=== PATIENT | female | born 1975 | race Caucasian/White ===

== ENCOUNTER 2020-07-19 23:19 | Emergency (ER) | payer OTHER, SELFPAY ==
--- NOTE | ~2020-07-19 | XR_ITS ---
EXAMINATION: XR chest 1V portable DATE: 07/20/2020 00:45 INDICATION: COVID 19. Shortness of breath. TECHNIQUE: frontal view of the chest was obtained. COMPARISON: Chest radiograph dated 10/13/2018 FINDINGS: The lungs remain clear with no focal airspace opacities, pulmonary edema, pleural effusion or pneumot horax. The cardiomediastinal silhouette is normal. Visualized bones and soft tissues are unremarkable . IMPRESSION: 1. No acute cardiopulmonary disease. Reviewed, dictated and finalized at location A.
[2020-07-19 23:23] VITALS: BP 137/86; PULSE 94; RESP 20; TEMP 36.7; O2SAT 98
--- NOTE | 2020-07-20 00:18 | ED.DIZZY ---
HPI - Dizziness General Chief Complaint: Dizziness Stated Complaint: covid + now dizzy Time Seen by Provider: 07/20/20 00:14 History of Present Illness HPI Narrative: Diagnosed with CoVID-19 last week. She was initially having fever and cough. those symptoms have mostly resolved. Over the past few days she has had a few dizzy spells. They have been getting more frequent. She says it feels like light headedness. No particular position or activity that triggers it. Gets better if she changes what she is doing. Associated with mild SOB. No CP, palpitations. Related Data Allergies Allergy/AdvReac Type Severity Reaction Status Date / Time morphine Allergy Mild NAUSEA AND Verified 07/20/20 00:19 VOMITING AND MIGRAINES Sulfa (Sulfonamide Allergy Mild RASH Verified 07/20/20 00:19 Antibiotics) sumatriptan Allergy Mild FLUSHING Verified 07/20/20 00:19 codeine Allergy Unknown SHALLOW Verified 07/20/20 00:19 BREATHING Opioids - Morphine Analogues Allergy Unknown ITCHING Verified 07/20/20 00:19 sulfanilamide Allergy Unknown Unknown Verified 07/20/20 00:19 [id number] Antimigraine Allergy Unknown Unknown Verified 07/20/20 00:19 Agents Review of Systems Review of Systems: All systems reviewed & are unremarkable except as noted in HPI and below Constitutional: Constitutional: Denies chills, Denies fever(s) and Denies weakness Cardiovascular: Cardiovascular: Denies chest pain Respiratory: Respiratory: Denies cough and Denies dyspnea Gastrointestinal: Gastrointestinal: Denies abdominal pain, Denies nausea and Denies vomiting Neurologic: Denies confusion, Reports dizziness, Denies syncope, Denies headache(s) and Denies weakness Psychiatric: Psychiatric: Reports anxiety PMFSH Past Medical History Medical History (Updated 07/20/20 @ 04:54 by Juan Valencia MD) COVID-19 Family History Family History Other Cerebrovascular accident Diabetes mellitus Family history of alcoholism Family history of arthritis Family history of cardiovascular disease Family history of mental disorder Hypertension Social History Social History Alcohol intake: current Gender identity (if verbalized by the patient): Female Exam Const: General: healthy appearing, no acute distress and alert Nutritional Appearance: well nourished Orientation/consciousness: patient oriented x3 HENMT: Head: normal to inspection Ears: TM's normal bilaterally Eyes: Pupils: Equal, round and reactive pupils present EOM: EOMs intact bilaterally Resp: Effort & Inspection: normal respiratory effort Auscultation: clear to auscultation bilaterally Cardio: Rate: regular rate Rhythm: regular rhythm Skin: General skin exam: normal color Neuro: General: patient oriented x3, moves all extremities, no focal motor deficits and CN's II-XI intact bilaterally Speech: normal speech Gait exam (Neuro): Normal gait present Extrem: General: normal to inspection and no edema Course Vital Signs Vital signs: Vital Signs Temperature 36.7 C 07/19/20 23:23 Pulse Rate 94 07/19/20 23:23 Respiratory Rate 20 07/19/20 23:23 Blood Pressure 137/86 07/19/20 23:23 Pulse Oximetry 98 07/19/20 23:23 Temperature 36.7 C 07/19/20 23:23 Pulse Rate 61 07/20/20 02:48 Respiratory Rate 17 07/20/20 02:48 Blood Pressure 148/70 H 07/20/20 02:48 Pulse Oximetry 98 07/20/20 02:48 MDM - Dizziness MDM Narrative Medical decision making narrative: Description of symptoms was nonspecific. Feeling better after fluids and meclizine. Medical Records Attestation: I reviewed the patient's medical records. Lab Data Attestation: I reviewed the patient's lab results. Result diagrams: 07/20/20 00:28 07/20/20 00:28 Labs: Lab Results 07/20/20 07/20/20 Range/Units 00:28 00:28 WBC
[2020-07-20 00:20] VITALS: BP 149/80; PULSE 66; RESP 16; O2SAT 100
--- NOTE | 2020-07-20 00:20 | ECG_ITS ---
Measurements Intervals Egan Rate: 63 P: 32 DE: 137 QRS: 1 QRSD: 85 T: 52 QT: 384 QTc: 394 Interpretive Statements SINUS RHYTHM BASELINE ARTIFACT- I, II, III, AVR, AVL, AVF BORDERLINE ECG Electronically Signed On 07-20-2020 7:26:45 CDT by Vernon Mcclelland D.O.
[2020-07-20 00:38] LABS: Basophils Absolute Auto 0.1 K/mm3 (0.0-0.1); Basophils Percent Auto 0.7 % (0.2-1.2); Eosinophils Absolute Auto 0.2 K/mm3 (0-0.3); Eosinophils Percent Auto 2.6 % (0-4.4); Hematocrit 45.5 % (37.0-47.0); Immature Granulocyte Absolute 0.02 K/mm3 (0.00-0.031); Immature Granulocyte Percent A 0.3 % (0-0.5); Lymphocytes Absolute Auto 2.06 K/mm3 (0.9-3.2); Lymphocytes Percent Auto 29.6 % (18.3-44.2); Mean Corpuscular Hemoglobin 30.7 pg (26-34); Mean Platelet Volume 11.3 fl (7.4-10.4); Monocytes Absolute Auto 0.6 K/mm3 (0.1-0.6); Monocytes Percent Auto 7.9 % (2.6-8.5); Neutrophils Absolute Auto 4.1 K/mm3 (1.3-6.7); Neutrophils Percent Auto 58.9 % (45.5-73.1); Platelet Count Result 260 k/mm3 (150-375); Red Blood Count 4.89 M/mm3 (4.2-5.4)
[2020-07-20 00:47] LABS: Anion Gap 8 mmol/L (8-16); Blood Urea Nitrogen 16 mg/dL (7-17); Calcium 8.9 mg/dL (8.4-10.2); Carbon Dioxide 26 mmol/L (22-30); Chloride 104 mmol/L (98-107); Estimated CRCL calculation 98 ml/min; Estimated Glomerular Filt Rate > 60; Glucose 95 mg/dL (65-105); Sodium 138 mmol/L (137-145)
[2020-07-20] MEDS: MECLIZINE HCL 25 MG TABLET PO (01:27)
[2020-07-20] MEDS: SODIUM CHLORIDE 0.9% IV 1,000 ML 999 ML IV CONT (01:27)
[2020-07-20 01:29] VITALS: BP 142/73; PULSE 65; RESP 17; O2SAT 100
[2020-07-20 02:06] VITALS: BP 137/72; PULSE 66; RESP 13; O2SAT 98
[2020-07-20 02:48] VITALS: BP 148/70; PULSE 61; RESP 17; O2SAT 98
== END 2020-07-20 02:49 | disposition home or self-care (01) ==
PROVIDERS: Emergency Provider Emergency Medicine; PCP Physician Assistant
DX: R42 Dizziness and giddiness (principal)
CPT/HCPCS: 36415; 71045; 80048; 85025; 93005; 99284; A9270; J7030

== ENCOUNTER → 2021-08-28 08:20 | Outpatient (CLI) | payer OTHER, SELFPAY ==
[2021-08-28 18:52] LABS: SARS-CoV-2 RNA PCR Negative
== END ==
PROVIDERS: PCP Physician Assistant; Visit Provider Pediatrics
DX: R05.9 Cough, unspecified (principal); J98.8 Other specified respiratory disorders; Z20.822 Contact with and (suspected) exposure to COVID-19
CPT/HCPCS: C9803; U0003; U0005

== ENCOUNTER 2022-03-09 13:55 | Emergency (ER) | payer OTHER, SELFPAY ==
--- NOTE | ~2022-03-09 | CT_ITS ---
EXAMINATION: CT abdomen pelvis wo con DATE: 03/09/2022 14:25 INDICATION: Left upper quadrant abdominal pain. Nausea. TECHNIQUE: Computed tomography (CT) of the abdomen and pelvis was performed without intravenous contr ast. Automated exposure control and iterative reconstruction technique were employed. Exam dose: 120 2.33 mGy-cm total exam DLP. COMPARISON: None. FINDINGS: The lung bases are clear. Normal heart size. No pericardial or pleural effusion. The liver, gallbladder, bile ducts, spleen, pancreas, pancreatic duct are unremarkable. Normal morphology of the adrenal glands. No renal mass lesion or urinary tract calculus or hydroureteronephrosis is detected. The urinary blad sosa is unremarkable. Status post hysterectomy. Normal caliber of the abdominal aorta. No intraperitoneal or retroperitoneal or pelvic mass lesion or adenopathy or ascites. Minimal diverticulosis of the colon; no CT evidence of diverticulitis. Normal appendix. No bowel obstruction, bowel wall thickening, pneumatosis or intraperitoneal free air. Very small fat-containing umbilical hernia. Included skeletal structures are unremarkable. IMPRESSION: Normal appendix Minimal diverticulosis of the left colon; no CT evidence of diverticulitis Reviewed, dictated and finalized at Location A. Reviewed, dictated and finalized at location A.
[2022-03-09 14:01] VITALS: BP 144/84; PULSE 80; RESP 18; TEMP 36.8; O2SAT 99
--- NOTE | 2022-03-09 14:14 | ED.ABDPAIN ---
HPI - Abdominal Pain General Chief Complaint: Abdominal Pain Stated Complaint: abdominal pain Time Seen by Provider: 03/09/22 14:10 History of Present Illness HPI narrative: 47-year-old female with a history of IBS presents the emergency room for evaluation of abdominal pain. Patient states that pain started abruptly located left lower quadrant, and radiates into the back. Patient does not have any known history of diverticulitis or kidney stones. Patient states she has been afebrile. Patient denies nausea, vomiting, diarrhea or constipation. Patient states abdominal pain is worse when it is touched. Denies dysuria Related Data Allergies Allergy/AdvReac Type Severity Reaction Status Date / Time codeine Allergy Unknown Itching Verified 03/09/22 14:13 morphine Allergy Unknown Itching Verified 03/09/22 14:13 sulfanilamide Allergy Unknown Migraine Verified 03/09/22 14:13 sumatriptan Allergy Unknown Itching Verified 03/09/22 14:13 tramadol Allergy Unknown Itching Verified 03/09/22 14:13 Sulfa (Sulfonamide Allergy Rash Verified 03/09/22 14:14 Antibiotics) Review of Systems Review of Systems: CONSTITUTIONAL: Denies fever, chills, or sweats. EYES: Denies visual changes, redness, or discharge. ENT: Denies rhinorrhea, congestion, sore throat, or otalgia. CARDIOVASCULAR: Denies chest pain, palpitations, or edema. RESPIRATORY: Denies cough or dyspnea. GASTROINTESTINAL: Reports abdominal pain GENITOURINARY: Denies dysuria or hematuria. SKIN: Denies rash or itching. MUSCULOSKELETAL: Denies back pain, joint pain, or myalgia. NEUROLOGIC: Denies headache, numbness, dizziness, or weakness. PSYCHIATRIC: Denies anxiety or depression. PMFSH Family History Family History Mother Family history of suicide Family history of osteoarthritis Father Hypertension Social History Social History Alcohol intake: current Exam Narrative: GENERAL: Well-appearing, well-nourished, and in no acute distress. HEAD: Normocephalic, atraumatic. EYES: PERRLA and EOMI. CHEST: Clear to auscultation. No respiratory distress. No wheezes rales or rhonchi HEART: Regular rate and rhythm. No murmur heard. Normal peripheral pulses. ABDOMEN: Soft, left lower quadrant tenderness, left CVA tenderness, normal bowel sounds in 4, no guarding, obese EXTREMITIES: Normal range of motion. No edema. SKIN: Warm, dry, no rash. NEURO: No focal deficits. Alert and oriented x3. PSYCH: Normal mood and affect. Course Vital Signs Vital signs: Vital Signs Temperature 36.8 C 03/09/22 14:01 Pulse Rate 80 03/09/22 14:01 Respiratory Rate 18 03/09/22 14:01 Blood Pressure 144/84 H 03/09/22 14:01 Pulse Oximetry 99 03/09/22 14:01 Temperature 36.8 C 03/09/22 14:01 Pulse Rate 80 03/09/22 14:01 Respiratory Rate 18 03/09/22 14:01 Blood Pressure 144/84 H 03/09/22 14:01 Pulse Oximetry 99 03/09/22 14:01 MDM - Abdominal Pain MDM Narrative Medical decision making narrative: 47-year-old female history of IBS presents the emergency room for evaluation of left lower quadrant and left upper quadrant pain that radiates to the back. CBC and CMP were unremarkable. CT shows no evidence of diverticulitis, or urolithiasis. Plain films show large amounts of bowel gas to left upper quadrant. Differential Diagnosis Differential diagnosis: Likely abdominal pain Lab Data Attestation: I reviewed the patient's lab results. Result diagrams: 03/09/22 14:16 03/09/22 14:16 Labs: Lab Results 03/09/22 03/09/22 Range/Units 14:16 14:16 WBC 7.9 (4.5-10.0) K/mm3 RBC 4.78 (4.2-5.4) M/mm3 Hgb 14.6 (12.0-15.0) g/dL Hct 45.7 (37.0-47.0) % MCV 95.6 (80-100) fl MCH 30.5 (26-34) pg MCHC 31.9 L (32-36) g/dl RDW 14.0 (11.5-14.5) % Plt Count 296 (150-375) k/mm3 MPV 11.2 H (7.4-10.4) fl Immatu
[2022-03-09 14:25] LABS: Basophils Absolute Auto 0.1 K/mm3 (0.0-0.1); Eosinophils Absolute Auto 0.2 K/mm3 (0-0.3); Hematocrit 45.7 % (37.0-47.0); Hemoglobin 14.6 g/dL (12.0-15.0); Immature Granulocyte Absolute 0.02 K/mm3 (0.00-0.031); Immature Granulocyte Percent A 0.3 % (0-0.5); Lymphocytes Absolute Auto 1.55 K/mm3 (0.9-3.2); Lymphocytes Percent Auto 19.7 % (18.3-44.2); Mean Corpuscular HGB Conc 31.9 g/dl (32-36); Mean Corpuscular Hemoglobin 30.5 pg (26-34); Mean Corpuscular Volume 95.6 fl (80-100); Mean Platelet Volume 11.2 fl (7.4-10.4); Monocytes Absolute Auto 0.6 K/mm3 (0.1-0.6); Monocytes Percent Auto 7.5 % (2.6-8.5); Neutrophils Absolute Auto 5.5 K/mm3 (1.3-6.7); Neutrophils Percent Auto 69.5 % (45.5-73.1); Platelet Count Result 296 k/mm3 (150-375); Red Blood Count 4.78 M/mm3 (4.2-5.4); White Blood Count 7.9 K/mm3 (4.5-10.0)
[2022-03-09] MEDS: SODIUM CHLORIDE 0.9% IV 1,000 ML 999 ML IV CONT (14:29)
[2022-03-09 14:45] LABS: Alanine Aminotransferase 85 U/L (4-35); Albumin Level 4.5 g/dL (3.5-5.1); Alkaline Phosphatase 97 U/L (38-126); Anion Gap 12 mmol/L (8-16); Aspartate Amino Transferase 47 U/L (14-36); Bilirubin,Total 0.5 mg/dL (0.2-1.3); Blood Urea Nitrogen 18 mg/dL (7-17); Calcium 8.5 mg/dL (8.4-10.2); Carbon Dioxide 20 mmol/L (22-30); Chloride 105 mmol/L (98-107); Estimated CRCL calculation 95 ml/min; Estimated Glomerular Filt Rate > 60; Glucose 122 mg/dL (65-110); Lipase 38 U/L (23-300); Potassium 3.9 mmol/L (3.4-5.0); Sodium 137 mmol/L (137-145)
[2022-03-09 15:37] VITALS: PULSE 87; RESP 13; O2SAT 99
== END 2022-03-09 15:39 | disposition home or self-care (01) ==
PROVIDERS: Emergency Provider Nurse Practitioner Family
DX: R10.12 Left upper quadrant pain (principal); K58.9 Irritable bowel syndrome, unspecified
CPT/HCPCS: 36415; 70486; 74176; 80053; 83690; 85025; 96360; 99284; J7030

== ENCOUNTER 2022-03-09 15:59 | Outpatient (CLI) | payer OTHER, SELFPAY ==
--- NOTE | ~2022-03-09 | CT_ITS ---
EXAMINATION: CT sinus wo con DATE: 03/09/2022 16:29 INDICATION: Chronic sinusitis TECHNIQUE: Computed tomography (CT) of the paranasal sinuses was performed without contrast. Iterativ e reconstruction technique was employed. Exam dose: 295.30 mGy-cm total exam DLP. COMPARISON: None FINDINGS: There is rightward bowing of the nasal septum. Mild intralamellar cell of the middle nasal turbinates. Yariel bullosa of right middle nasal turbinate Prominent soft tissue swelling of the middle and inferior nasal turbinates bilaterally. Patent bilateral ostiomeatal units. The paranasal sinuses are normally developed and aerated. 7 mm mucus retention cyst in the inferomedial aspect of the left maxillary sinus. The paranasal sinus es are otherwise clear. Normal development and aeration of the mastoid air cells bilaterally. Middle and inner ear apparatus are unremarkable. IMPRESSION: Rightward bowing of nasal septum Mild intralamellar cell of both middle nasal turbinates and yariel bullosa of right middle nasal turb inate Small mucus retention cyst of the inferomedial left maxillary sinus Reviewed, dictated and finalized at [facility]. Reviewed, dictated and finalized at location A. IMPRESSION: Rightward bowing of nasal septum Mild intralamellar cell of both middle nasal turbinates and yariel bullosa of r ight middle nasal turbinate Small mucus retention cyst of the inferomedial left maxillary sinus
== END 2022-03-09 16:00 | disposition home or self-care (01) ==
PROVIDERS: PCP Physician Assistant; Visit Provider Otolaryngology
DX: J32.9 Chronic sinusitis, unspecified (principal); J34.1 Cyst and mucocele of nose and nasal sinus
CPT/HCPCS: 70486

== ENCOUNTER 2022-06-01 00:17 | Day surgery (SDC) | payer OTHER, SELFPAY ==
[2022-05-17 10:48] VITALS: BMI 39.0
--- NOTE | 2022-05-31 14:13 | PM.HPGS ---
History of Present Illness History of Present Illness Consent: Risks, benefits, and alternatives have been discussed and questions answered. Patient agrees to proceed with procedure. Chief complaint: neoplasm screening Narrative: Haydee Hahn is a 47 year old female Who was referred for colon cancer screening. Review of Systems Review of Systems: All systems reviewed & are unremarkable except as noted in HPI and below PMFSH Past Medical History Medical History Anxiety COVID-19 Hypothyroidism Surgical History Surgical History History of knee surgery History of removal of both ovaries History of tubal ligation Family History Family History Other Cerebrovascular accident Diabetes mellitus Family history of alcoholism Family history of arthritis Family history of cardiovascular disease Family history of mental disorder Hypertension Social History Social History Smoking status: Never smoker Alcohol intake: current Alcohol use details: Rare occasions Substance use type: does not use Gender identity (if verbalized by the patient): Female Spiritual care concerns: No Meds Home Medications and Allergies Home Medications Medication Instructions Recorded Confirmed Type escitalopram oxalate 10 mg tablet 10 mg PO DAILY 08/31/20 05/17/22 History (Lexapro) loratadine 10 mg tablet (Allergy 10 mg PO DAILY 08/31/20 05/17/22 History Relief (loratadine)) dextroamphetamine-amphetamine ER 30 mg PO QAM 01/31/22 05/17/22 History 30 mg 24hr capsule,extend release (Adderall XR) esterified estrogens 2.5 mg tablet 2.5 mg PO DAILY 01/31/22 05/17/22 History ipratropium bromide 42 mcg (0.06 2 spray intranasal TID #15 mL 01/31/22 05/17/22 Rx %) nasal spray levothyroxine 150 mcg capsule 165 mcg PO DAILY 01/31/22 05/17/22 History progesterone micronized 200 mg 500 mg PO QHS 01/31/22 05/17/22 History capsule testosterone 1.62 % (40.5 mg/2.5 1 packet transdermal DAILY 01/31/22 05/17/22 History gram) transdermal gel packet Allergies Allergy/AdvReac Type Severity Reaction Status Date / Time morphine Allergy Mild NAUSEA AND Verified 06/01/22 08:53 VOMITING AND MIGRAINES Sulfa (Sulfonamide Allergy Mild RASH Verified 06/01/22 08:53 Antibiotics) sumatriptan Allergy Mild FLUSHING Verified 06/01/22 08:53 codeine Allergy Unknown SHALLOW Verified 06/01/22 08:53 BREATHING Opioids - Morphine Analogues Allergy Unknown ITCHING Verified 06/01/22 08:53 sulfanilamide Allergy Unknown Unknown Verified 06/01/22 08:53 [id number] Antimigraine Allergy Unknown Unknown Verified 06/01/22 08:53 Agents Exam Const: General: alert Orientation/consciousness: patient oriented x3 Resp: Auscultation: clear to auscultation bilaterally Cardio: Rhythm: regular rhythm GI: GI Palp: Yes Soft to palpation and No Tenderness to palpation present (GI) Neuro: General: patient oriented x3 Assessment and Plan Assessment and plan (1) Colon cancer screening: Code(s): Z12.11 - Encounter for screening for malignant neoplasm of colon Status: Acute Assessment and Plan: Colonoscopy with possible biopsy or polypectomy or cautery or injection of substances.
[2022-06-01 08:54] VITALS: BP 128/74; PULSE 80; RESP 18; TEMP 36.5; O2SAT 98
[2022-06-01] MEDS: LACTATED RINGERS 1,000 ML 150 ML IV CONT (09:08)
--- NOTE | 2022-06-01 09:17 | WPDANESEPPF ---
Anes - Initial Pre Proc Eval Procedure: Operation Date: 06/01/22 10:00 Proposed Procedures p Screening Colonoscopy - Kd Russell MD Date/Time: 06/01/22 09:17 Surgeon: Kd Russell MD Pre Op Diagnosis: neoplasm screening Patient Data Age: 47 Gender: F Height: 1.6 m Weight: 100.1 kg Last Vital Signs Temp 36.5 C 06/01/22 08:54 Pulse 80 06/01/22 08:54 Resp 18 06/01/22 08:54 BP 128/74 06/01/22 08:54 Pulse Ox 98 06/01/22 08:54 O2 Del Method Room Air 06/01/22 08:54 Allergies Allergy/AdvReac Type Severity Reaction Status Date / Time morphine Allergy Mild NAUSEA AND Verified 06/01/22 08:53 VOMITING AND MIGRAINES Sulfa (Sulfonamide Allergy Mild RASH Verified 06/01/22 08:53 Antibiotics) sumatriptan Allergy Mild FLUSHING Verified 06/01/22 08:53 codeine Allergy Unknown SHALLOW Verified 06/01/22 08:53 BREATHING Opioids - Morphine Analogues Allergy Unknown ITCHING Verified 06/01/22 08:53 sulfanilamide Allergy Unknown Unknown Verified 06/01/22 08:53 [id number] Antimigraine Allergy Unknown Unknown Verified 06/01/22 08:53 Agents Home Medications Medication Instructions Recorded Confirmed Type escitalopram oxalate 10 mg tablet 10 mg PO DAILY 08/31/20 05/17/22 History (Lexapro) loratadine 10 mg tablet (Allergy 10 mg PO DAILY 08/31/20 05/17/22 History Relief (loratadine)) dextroamphetamine-amphetamine ER 30 mg PO QAM 01/31/22 05/17/22 History 30 mg 24hr capsule,extend release (Adderall XR) esterified estrogens 2.5 mg tablet 2.5 mg PO DAILY 01/31/22 05/17/22 History ipratropium bromide 42 mcg (0.06 2 spray intranasal TID #15 mL 01/31/22 05/17/22 Rx %) nasal spray levothyroxine 150 mcg capsule 165 mcg PO DAILY 01/31/22 05/17/22 History progesterone micronized 200 mg 500 mg PO QHS 01/31/22 05/17/22 History capsule testosterone 1.62 % (40.5 mg/2.5 1 packet transdermal DAILY 01/31/22 05/17/22 History gram) transdermal gel packet Patient hx anesthesia problems: post op nausea/vomiting Family hx anesthesia problems: none Results Review: All pre-operative results and documents have been reviewed as part of the pre-operative evaluation. [facility] Past Medical History Medical History Anemia Anxiety GERD (gastroesophageal reflux disease) Hypothyroidism Surgical History Surgical History History of knee surgery History of removal of both ovaries History of tubal ligation Family History Family History Other Cerebrovascular accident Diabetes mellitus Family history of alcoholism Family history of arthritis Family history of cardiovascular disease Family history of mental disorder Hypertension Social History Social History Smoking status: Never smoker Alcohol intake: current Alcohol use details: Rare occasions Substance use type: does not use Gender identity (if verbalized by the patient): Female Spiritual care concerns: No Anes - Eval Final PreProcedure Day of Procedure 06/01/22 09:17 Patient weight: obese Heart: regular rate and rhythm Lungs: clear to auscultation Airway: Mallampati scale class II Neurological: alert and oriented Last oral intake: >/= 8 hours ASA classification: III Emergent: no Anesthetic plan: proceed Anesthesia type and monitoring: general GIVS and standard monitoring Results Review: All pre-operative results and documents have been reviewed as part of the pre-operative evaluation. Informed Consent: The patient's anesthetic plan and its attendant risks and benefits were discussed with the patient/family/POA. Questions were solicited and answers provided to the satisfaction of the patient/family/POA.
[2022-06-01 10:05] VITALS: BP 138/69; PULSE 68; RESP 18; O2SAT 100
[2022-06-01 10:15] VITALS: BP 135/60; PULSE 60; RESP 20; O2SAT 100
[2022-06-01 10:25] VITALS: BP 138/69; PULSE 69; RESP 18; O2SAT 100
== END 2022-06-01 10:45 | disposition home or self-care (01) ==
PROVIDERS: PCP Physician Assistant; Visit Provider Internal Medicine Gastroenterology
PROC: 0DJD8ZZ Inspection of Lower Intestinal Tract, Via Natural or Artificial Opening Endoscopic (ICD-10-PCS; CPT 45378; principal; 2022-06-01 10:00)
DX: Z12.11 Encounter for screening for malignant neoplasm of colon (principal); D64.9 Anemia, unspecified; F41.9 Anxiety disorder, unspecified; K21.9 Gastro-esophageal reflux disease without esophagitis; E03.9 Hypothyroidism, unspecified; E66.9 Obesity, unspecified; Z68.39 Body mass index [BMI] 39.0-39.9, adult; Z86.16 Personal history of COVID-19
CPT/HCPCS: 45378; J2704; J7120

== ENCOUNTER 2022-08-01 17:10 | Outpatient (CLI) | payer OTHER, SELFPAY ==
--- NOTE | ~2022-08-01 | XR_ITS ---
EXAM: XR lumbar spine 2-3V DATE: 08/01/2022 17:54 HISTORY: CERVICALGIA, PAIN IN THORACIC, LOW BACK PAIN . COMPARISON: None available. FINDINGS: 5 nonrib-bearing lumbar-type vertebral bodies. Pedicles intact. Normal vertebral body alig nment. Vertebral body heights preserved. Disc spaces maintained. Multilevel mild facet hypertrophy an d sclerosis. No fracture or dislocation. IMPRESSION: Mild lumbar facet arthropathy. Reviewed, dictated and finalized at location K.
--- NOTE | ~2022-08-01 | XR_ITS ---
EXAM: XR thoracic spine 3V DATE: 08/01/2022 17:54 HISTORY: CERVICALGIA, PAIN IN THORACIC, LOW BACK PAIN . COMPARISON: None available. FINDINGS: Vertebral body alignment intact. Vertebral body heights preserved. Multilevel mild disc sp jose narrowing and marginal osteophytosis. No traumatic malalignment or fracture. Visualized lung pare nchyma is clear. IMPRESSION: Multilevel mild degenerative disc disease. Reviewed, dictated and finalized at location K.
--- NOTE | ~2022-08-01 | XR_ITS ---
EXAM: XR cervical spine 4-5V DATE: 08/01/2022 17:54 HISTORY: CERVICALGIA . COMPARISON: None available. FINDINGS: Craniocervical association and atlantoaxial joint are normal. No prevertebral soft tissue swelling. 2 mm anterolisthesis at C4-5. Mild disc space narrowing and marginal osteophytosis at C6-7, remaining disc spaces are maintained. Normal vertebral body heights. Moderate left neural foraminal narrowing at C6-7. Moderate right C3-4 neural foraminal narrowing. Multilevel uncovertebral joint hyp ertrophy. IMPRESSION: Grade 1 anterolisthesis at C4-5. Moderate degenerative disc disease at C6-7. Moderate rig ht C3-4 and left C6-7 neural foraminal narrowing. Reviewed, dictated and finalized at location K. IMPRESSION: Grade 1 anterolisthesis at C4-5. Moderate degenerative disc disease at C6-7. Moderate right C3-4 and left C6-7 neural foraminal narrowing.
== END 2022-08-01 17:11 | disposition home or self-care (01) ==
LOC: ANHIMG 17:13
PROVIDERS: PCP Physician Assistant; Visit Provider Physician Assistant
DX: M54.6 Pain in thoracic spine (principal); M54.2 Cervicalgia; M47.814 Spondylosis without myelopathy or radiculopathy, thoracic region; M47.813 Spondylosis without myelopathy or radiculopathy, cervicothoracic region; M54.50 Low back pain, unspecified
CPT/HCPCS: 72050; 72072; 72100

== ENCOUNTER 2022-11-15 10:27 | Outpatient (CLI) | payer OTHER, SELFPAY ==
[2022-11-15 19:44] LABS: Basophils Absolute Auto 0.1 K/mm3 (0.0-0.1); Basophils Percent Auto 1.2 % (0.2-1.2); Eosinophils Absolute Auto 0.2 K/mm3 (0-0.3); Eosinophils Percent Auto 3.4 % (0-4.4); Hematocrit 45.1 % (37.0-47.0); Immature Granulocyte Absolute 0.01 K/mm3 (0.00-0.031); Immature Granulocyte Percent A 0.2 % (0-0.5); Lymphocytes Absolute Auto 1.85 K/mm3 (0.9-3.2); Lymphocytes Percent Auto 28.4 % (18.3-44.2); Mean Corpuscular Hemoglobin 30.2 pg (26-34); Mean Corpuscular Volume 97.4 fl (80-100); Mean Platelet Volume 11.9 fl (7.4-10.4); Monocytes Absolute Auto 0.6 K/mm3 (0.1-0.6); Monocytes Percent Auto 9.4 % (2.6-8.5); Neutrophils Absolute Auto 3.8 K/mm3 (1.3-6.7); Neutrophils Percent Auto 57.4 % (45.5-73.1); Platelet Count Result 306 k/mm3 (150-375); Red Blood Count 4.63 M/mm3 (4.2-5.4); Red Cell Distribution Width 14.4 % (11.5-14.5); White Blood Count 6.5 K/mm3 (4.5-10.0)
[2022-11-15 19:57] LABS: Add Urine Microscopic? NO; Appearance Urine Clear (Clear); Bilirubin Urine Negative (Negative); Blood Urine Negative (Negative); Color Urine Yellow (Yellow); Glucose Urine UA Negative (Negative); Ketones Urine Negative (Negative); Leukocyte Esterase Ur Negative LEU/UL (Negative); Nitrate Urine Negative (Negative); Protein Urine Negative (Negative); Specific Grav Ur >= 1.030 (1.001-1.035); Urobilinogen Urine 0.2 mg/dL (<2.0)
[2022-11-15 19:59] LABS: Alanine Aminotransferase 35 U/L (6-35); Albumin Level 4.2 g/dL (3.5-5.1); Alkaline Phosphatase 97 U/L (38-126); Anion Gap 9 mmol/L (8-16); Aspartate Amino Transferase 43 U/L (14-36); Bilirubin,Total 0.3 mg/dL (0.2-1.3); Blood Urea Nitrogen 18 mg/dL (7-17); Calcium 8.9 mg/dL (8.4-10.2); Carbon Dioxide 27 mmol/L (22-30); Chloride 105 mmol/L (98-107); Cholesterol 164 mg/dL (0-200); Estimated Glomerular Filt Rate > 60; Glucose 82 mg/dL (65-110); HDL Direct 25 mg/dL; Potassium 3.8 mmol/L (3.4-5.0); Sodium 141 mmol/L (137-145); Triglycerides 146 mg/dL (<150)
[2022-11-15 20:10] LABS: LDL Cholesterol Direct 116 mg/dL
[2022-11-15 21:03] LABS: Folic Acid 3.2 ng/mL (2.76->20)
[2022-11-15 22:53] LABS: Free T4 Free Thyroxine 0.85 ng/mL (0.78-2.19)
[2022-11-19 15:01] LABS: FSH 87.7 mIU/mL (***); LH 36.2 mIU/mL (***); Progesterone 0.4 ng/mL (***); Prolactin 5.3 ng/mL (***); Triiodothyronine T3 Free 3.1 pg/mL (2.3-4.2)
[2022-11-20 10:23] LABS: Testosterone Total 22 ng/dL (2-45)
[2022-11-21 21:01] LABS: Estradiol, Ultrasensitive 17 pg/mL
== END 2022-11-15 10:28 | disposition home or self-care (01) ==
LOC: ANHBWCLAB 10:30
PROVIDERS: PCP Physician Assistant; Visit Provider Physician Assistant
DX: E03.9 Hypothyroidism, unspecified (principal); Z78.0 Asymptomatic menopausal state; Z68.38 Body mass index [BMI] 38.0-38.9, adult; Z13.1 Encounter for screening for diabetes mellitus; Z13.220 Encounter for screening for lipoid disorders; Z79.899 Other long term (current) drug therapy
CPT/HCPCS: 36415; 80053; 80061; 81003; 82607; 82670; 82672; 82746; 83001; 83002; 83036; 83525; 84144; 84146; 84403; 84439; 84443; 84481; 85025

== ENCOUNTER 2023-04-04 17:04 | Emergency (ER) | payer OTHER, SELFPAY ==
[2023-04-04 17:08] VITALS: BP 143/91; PULSE 80; RESP 20; TEMP 36.8; O2SAT 99
--- NOTE | 2023-04-04 17:15 | ED.URI ---
HPI - URI/Sore Throat General Chief Complaint: Upper Respiratory Infection Stated Complaint: head congestion/ears Time Seen by Provider: 04/04/23 17:15 Source: patient and RN notes reviewed History of Present Illness HPI Narrative: Patient is a 48-year-old female presents to urgent care with complaints of 8 week history of sinusitis with pressure, head congestion and bilateral ear discomfort. Patient states that she started Sudafed a couple weeks ago after she was seen by Jose in the medical office. Patient states that she has been seen by ENT in the past and did have issues with punctured sinus cavity with a tooth infection. Patient denies any fevers. States it she has been using Tylenol/ibuprofen as needed for discomfort. Patient is requesting Levaquin. No other acute complaints. No acute distress noted. Patient aware of the plan of care. Some parts of this dictation were generated by voice recognition software and may contain typographical and/or grammatical inaccuracies. Related Data Home Medications Medication Instructions Recorded Confirmed escitalopram oxalate 10 mg tablet 10 mg PO DAILY 08/31/20 05/17/22 (Lexapro) loratadine 10 mg tablet (Allergy 10 mg PO DAILY 08/31/20 05/17/22 Relief (loratadine)) dextroamphetamine-amphetamine ER 30 mg PO QAM 01/31/22 05/17/22 30 mg 24hr capsule,extend release (Adderall XR) esterified estrogens 2.5 mg tablet 2.5 mg PO DAILY 01/31/22 05/17/22 levothyroxine 150 mcg capsule 165 mcg PO DAILY 01/31/22 05/17/22 progesterone micronized 200 mg 500 mg PO QHS 01/31/22 05/17/22 capsule testosterone 1.62 % (40.5 mg/2.5 1 packet transdermal DAILY 01/31/22 05/17/22 gram) transdermal gel packet Allergies Allergy/AdvReac Type Severity Reaction Status Date / Time morphine Allergy Mild NAUSEA AND Verified 06/01/22 08:53 VOMITING AND MIGRAINES Sulfa (Sulfonamide Allergy Mild RASH Verified 06/01/22 08:53 Antibiotics) sumatriptan Allergy Mild FLUSHING Verified 06/01/22 08:53 codeine Allergy Unknown SHALLOW Verified 06/01/22 08:53 BREATHING Opioids - Morphine Analogues Allergy Unknown ITCHING Verified 06/01/22 08:53 sulfanilamide Allergy Unknown Unknown Verified 06/01/22 08:53 [id number] Antimigraine Allergy Unknown Unknown Verified 06/01/22 08:53 Agents Review of Systems Review of Systems: CONSTITUTIONAL: Denies fever, chills, or sweats. EYES: Denies visual changes, redness, or discharge. ENT: Reports of sinus pressure, nasal congestion and bilateral otalgia CARDIOVASCULAR: Denies chest pain, palpitations, or edema. RESPIRATORY: Denies cough or dyspnea. GASTROINTESTINAL: Denies abdominal pain, nausea, vomiting, or diarrhea. GENITOURINARY: Denies dysuria or hematuria. SKIN: Denies rash or itching. MUSCULOSKELETAL: Denies back pain, joint pain, or myalgia. NEUROLOGIC: Denies headache, numbness, or weakness. All other systems reviewed are negative, except as documented in HPI. [facility] Past Medical History Medical History Anemia Anxiety GERD (gastroesophageal reflux disease) Hypothyroidism Surgical History Surgical History History of knee surgery History of removal of both ovaries History of tubal ligation Family History Family History Other Cerebrovascular accident Diabetes mellitus Family history of alcoholism Family history of arthritis Family history of cardiovascular disease Family history of mental disorder Hypertension Social History Social History Smoking status: Never smoker Alcohol intake: current Alcohol use details: Rare occasions Substance use type: does not use Gender identity (if verbalized by the patient): Female Spiritual care concerns: No Comments At the
== END 2023-04-04 17:38 | disposition home or self-care (01) ==
PROVIDERS: Emergency Provider Nurse Practitioner Family; PCP Physician Assistant
DX: J32.9 Chronic sinusitis, unspecified (principal); K21.9 Gastro-esophageal reflux disease without esophagitis; E03.9 Hypothyroidism, unspecified; F41.9 Anxiety disorder, unspecified
CPT/HCPCS: 99213; G0463

== ENCOUNTER 2023-04-26 09:58 | Outpatient (CLI) | payer OTHER, SELFPAY ==
[2023-04-26 16:32] LABS: Basophils Absolute Auto 0.1 K/mm3 (0.0-0.1); Eosinophils Absolute Auto 0.2 K/mm3 (0-0.3); Eosinophils Percent Auto 3.6 % (0-4.4); Hematocrit 45.7 % (37.0-47.0); Hemoglobin 14.4 g/dL (12.0-15.0); Immature Granulocyte Absolute 0.01 K/mm3 (0.00-0.031); Immature Granulocyte Percent A 0.2 % (0-0.5); Lymphocytes Absolute Auto 1.22 K/mm3 (0.9-3.2); Lymphocytes Percent Auto 24.2 % (18.3-44.2); Mean Corpuscular HGB Conc 31.5 g/dl (32-36); Mean Corpuscular Hemoglobin 29.4 pg (26-34); Mean Corpuscular Volume 93.5 fl (80-100); Mean Platelet Volume 12.4 fl (7.4-10.4); Monocytes Absolute Auto 0.5 K/mm3 (0.1-0.6); Monocytes Percent Auto 9.5 % (2.6-8.5); Neutrophils Absolute Auto 3.1 K/mm3 (1.3-6.7); Neutrophils Percent Auto 61.5 % (45.5-73.1); Platelet Count Result 241 k/mm3 (150-375); Red Blood Count 4.89 M/mm3 (4.2-5.4); Red Cell Distribution Width 14.2 % (11.5-14.5); White Blood Count 5.1 K/mm3 (4.5-10.0)
[2023-04-26 16:45] LABS: Alanine Aminotransferase 63 U/L (6-35); Albumin Level 3.9 g/dL (3.5-5.1); Alkaline Phosphatase 78 U/L (38-126); Anion Gap 7 mmol/L (8-16); Aspartate Amino Transferase 52 U/L (14-36); Bilirubin,Total 0.6 mg/dL (0.2-1.3); Blood Urea Nitrogen 11 mg/dL (7-17); Calcium 8.6 mg/dL (8.4-10.2); Carbon Dioxide 29 mmol/L (22-30); Chloride 103 mmol/L (98-107); Estimated Glomerular Filt Rate > 60; Glucose 75 mg/dL (65-110); Potassium 3.6 mmol/L (3.4-5.0); Sodium 139 mmol/L (137-145)
[2023-04-26 17:02] LABS: Free T4 Free Thyroxine 1.25 ng/mL (0.78-2.19)
[2023-05-01 14:51] LABS: Triiodothyronine T3 Free 2.7 pg/mL (2.3-4.2)
== END 2023-04-26 09:59 | disposition home or self-care (01) ==
LOC: ANHGOSHLAB 10:00
PROVIDERS: Visit Provider Physician Assistant
DX: E03.9 Hypothyroidism, unspecified (principal)
CPT/HCPCS: 36415; 80053; 84439; 84443; 84481; 85025

== ENCOUNTER 2023-09-28 15:40 | Emergency (ER) | payer OTHER, SELFPAY ==
[2023-09-28 15:41] VITALS: BP 133/81; PULSE 94; RESP 18; TEMP 36.3; O2SAT 99
--- NOTE | 2023-09-28 17:34 | ED.GENADULT ---
HPI - General Adult General Chief complaint: Headache Stated complaint: headache Time Seen by Provider: 09/28/23 17:03 Source: patient Mode of arrival: ambulatory Limitations: no limitations History of Present Illness HPI narrative: This is a 48-year-old female who presents to the ED with chief complaint of feeling dehydrated. Reports that has had a headache over the last few days with sinusitis. She has been taking Porsha on Augmentin per her PCP for this and feels that is helping the sinuses. However today she had an episode of vomiting and mild diffuse abdominal discomfort. She states she has had several episodes of this ever since starting her semaglutide January and this feels similar. She is requesting fluids for possible dehydration and to check her labs. Denies fevers, chills, problems with urination or bowel movements. Denies numbness, weakness, neck pain or stiffness, vision change. Related Data Home Medications Medication Instructions Recorded Confirmed escitalopram oxalate 10 mg tablet 10 mg PO DAILY 08/31/20 05/17/22 (Lexapro) loratadine 10 mg tablet (Allergy 10 mg PO DAILY 08/31/20 05/17/22 Relief (loratadine)) dextroamphetamine-amphetamine ER 30 mg PO QAM 01/31/22 05/17/22 30 mg 24hr capsule,extend release (Adderall XR) esterified estrogens 2.5 mg tablet 2.5 mg PO DAILY 01/31/22 05/17/22 levothyroxine 150 mcg capsule 165 mcg PO DAILY 01/31/22 05/17/22 progesterone micronized 200 mg 500 mg PO QHS 01/31/22 05/17/22 capsule testosterone 1.62 % (40.5 mg/2.5 1 packet transdermal DAILY 01/31/22 05/17/22 gram) transdermal gel packet Allergies Allergy/AdvReac Type Severity Reaction Status Date / Time codeine Allergy Unknown Itching Verified 09/28/23 16:21 morphine Allergy Unknown Itching Verified 09/28/23 16:21 Opioids - Morphine Analogues Allergy Unknown ITCHING Verified 09/28/23 16:21 sulfanilamide Allergy Unknown Migraine Verified 09/28/23 16:21 sumatriptan Allergy Unknown Itching Verified 09/28/23 16:21 tramadol Allergy Unknown Itching Verified 09/28/23 16:21 [id number] Antimigraine Allergy Unknown Unknown Verified 09/28/23 16:21 Agents Sulfa (Sulfonamide Allergy Rash Verified 09/28/23 16:21 Antibiotics) Review of Systems Review of Systems: All systems as dictated in [facility] Past Medical History Medical History (Updated 09/28/23 @ 18:57 by Devonte Murrieta PA-C) Anemia Anxiety GERD (gastroesophageal reflux disease) Hypothyroidism Surgical History Surgical History (Updated 04/30/23 @ 15:03 by Tamika Minaya) History of knee surgery History of removal of both ovaries History of tubal ligation Family History Family History Mother Family history of suicide Family history of osteoarthritis Father Hypertension Social History Social History (System 04/30/23 @ 15:03 by Tamika Minaya) Smoking status: Never smoker Alcohol intake: current Alcohol use details: Rare occasions Substance use type: does not use Gender identity (if verbalized by the patient): Female Spiritual care concerns: No Exam Narrative: GENERAL: Well-appearing, well-nourished, and in no acute distress. HEAD: Normocephalic, atraumatic. EYES: PERRLA and EOMI. ENT: Nares clear, no rhinorrhea or epistaxis. Mucous membranes moist. Oropharynx without tonsillar hypertrophy exudate or other lesions. NECK: Supple. No adenopathy or masses. CHEST: No respiratory distress. Clear to auscultation. No wheezes rales or rhonchi HEART: Regular rate and rhythm. No murmur heard. Normal peripheral pulses. ABDOMEN: Soft, nontender, nondistended, normal active bowel sounds. MSK: Normal range of motion. No edema. SKIN: Warm, dry, no rash. NEURO: Alert and oriented x3. No focal deficits. PSYCH: Normal mood and affect. Course Course Emergency Course: Re-evaluation at 6:56 p.m.: Patient feeling much improved and ready to go
[2023-09-28] MEDS: ONDANSETRON INJ 4 MG/2 ML VIAL IV PUSH (17:40)
[2023-09-28] MEDS: SODIUM CHLORIDE 0.9% IV 1,000 ML 999 ML IV CONT (17:40)
[2023-09-28] MEDS: KETOROLAC 15 MG/ML VIAL (*BKC) IV PUSH (17:40)
[2023-09-28 17:43] LABS: Basophils Absolute Auto 0.1 K/mm3 (0.0-0.1); Basophils Percent Auto 1.1 % (0.2-1.2); Eosinophils Absolute Auto 0.1 K/mm3 (0-0.3); Eosinophils Percent Auto 1.8 % (0-4.4); Hematocrit 42.3 % (37.0-47.0); Hemoglobin 13.7 g/dL (12.0-15.0); Immature Granulocyte Absolute 0.01 K/mm3 (0.00-0.031); Immature Granulocyte Percent A 0.1 % (0-0.5); Lymphocytes Percent Auto 15.2 % (18.3-44.2); Mean Corpuscular HGB Conc 32.4 g/dl (32-36); Mean Corpuscular Hemoglobin 30.9 pg (26-34); Mean Corpuscular Volume 95.3 fl (80-100); Mean Platelet Volume 11.8 fl (7.4-10.4); Monocytes Absolute Auto 0.6 K/mm3 (0.1-0.6); Monocytes Percent Auto 7.7 % (2.6-8.5); Neutrophils Absolute Auto 5.4 K/mm3 (1.3-6.7); Neutrophils Percent Auto 74.1 % (45.5-73.1); Platelet Count Result 268 k/mm3 (150-375); Red Blood Count 4.44 M/mm3 (4.2-5.4); Red Cell Distribution Width 13.9 % (11.5-14.5); White Blood Count 7.3 K/mm3 (4.5-10.0)
[2023-09-28 17:44] VITALS: BP 136/84; PULSE 69; RESP 15; O2SAT 98
[2023-09-28 17:53] LABS: Alanine Aminotransferase 30 U/L (6-35); Albumin Level 3.9 g/dL (3.5-5.1); Alkaline Phosphatase 74 U/L (38-126); Anion Gap 10 mmol/L (8-16); Aspartate Amino Transferase 24 U/L (14-36); Bilirubin,Total 0.6 mg/dL (0.2-1.3); Blood Urea Nitrogen 12 mg/dL (7-17); Calcium 9.3 mg/dL (8.4-10.2); Carbon Dioxide 28 mmol/L (22-30); Chloride 103 mmol/L (98-107); Estimated CRCL calculation 81 ml/min; Estimated Glomerular Filt Rate > 60; Glucose 83 mg/dL (65-110); Lipase 71 U/L (23-300); Magnesium 2.1 mg/dL (1.6-2.3); Phosphorus 4.6 mg/dL (2.5-4.5); Sodium 141 mmol/L (137-145)
[2023-09-28 18:25] VITALS: BP 119/79; PULSE 73; RESP 15; O2SAT 100
== END 2023-09-28 19:15 | disposition home or self-care (01) ==
PROVIDERS: Emergency Provider Physician Assistant; PCP Physician Assistant
DX: R51.9 Headache, unspecified (principal); E03.9 Hypothyroidism, unspecified; K21.9 Gastro-esophageal reflux disease without esophagitis; F41.9 Anxiety disorder, unspecified; Z86.2 Personal history of diseases of the blood and blood-forming organs and certain disorders involving the immune mechanism; Z79.85 Long-term (current) use of injectable non-insulin antidiabetic drugs
CPT/HCPCS: 36415; 80053; 83690; 83735; 84100; 85025; 96361; 96374; 96375; 99284; J1885; J2405; J7030

== ENCOUNTER 2024-08-18 14:02 | Emergency (ER) | payer OTHER, SELFPAY ==
[2024-08-18] VITALS (8 sets, daily range): BP systolic 124–141; BP diastolic 74–87; PULSE 79–100; RESP 11–20; TEMP 36.5–36.7; O2SAT 97–100
--- NOTE | 2024-08-18 15:05 | ECG_ITS ---
Test Date: 2024-08-18 15:27:41 Measurements Intervals [place] Rate: 86 P: 38 RI: 114 QRS: 13 QRSD: 82 T: 46 QT: 356 QTc: 427 Interpretive Statements SINUS RHYTHM NORMAL ELECTROCARDIOGRAM No previous ECG available for comparison Electronically Signed On 08-19-2024 07:10:48 CDT by Shimon Workman M.D.
[2024-08-18 15:28] LABS: Basophils Absolute Auto 0.1 K/mm3 (0.0-0.1); Basophils Percent Auto 1.2 % (0.2-1.2); Eosinophils Absolute Auto 0.2 K/mm3 (0-0.3); Eosinophils Percent Auto 3.5 % (0-4.4); Hematocrit 42.5 % (37.0-47.0); Hemoglobin 14.2 g/dL (12.0-15.0); Immature Granulocyte Absolute 0.02 K/mm3 (0.00-0.031); Immature Granulocyte Percent A 0.4 % (0-0.5); Lymphocytes Absolute Auto 1.22 K/mm3 (0.9-3.2); Lymphocytes Percent Auto 23.5 % (18.3-44.2); Mean Corpuscular HGB Conc 33.4 g/dl (32-36); Mean Corpuscular Hemoglobin 30.6 pg (26-34); Mean Corpuscular Volume 91.6 fl (80-100); Mean Platelet Volume 11.7 fl (7.4-10.4); Monocytes Absolute Auto 0.4 K/mm3 (0.1-0.6); Monocytes Percent Auto 8.3 % (2.6-8.5); Neutrophils Absolute Auto 3.3 K/mm3 (1.3-6.7); Neutrophils Percent Auto 63.1 % (45.5-73.1); Platelet Count Result 244 k/mm3 (150-375); Red Blood Count 4.64 M/mm3 (4.2-5.4); Red Cell Distribution Width 14.5 % (11.5-14.5); White Blood Count 5.2 K/mm3 (4.5-10.0)
[2024-08-18 15:47] LABS: Alanine Aminotransferase 25 U/L (6-35); Albumin Level 4.3 g/dL (3.5-5.1); Alkaline Phosphatase 61 U/L (38-126); Anion Gap 15 mmol/L (4-12); Aspartate Amino Transferase 30 U/L (14-36); Bilirubin,Total 0.7 mg/dL (0.2-1.3); Blood Urea Nitrogen 12 mg/dL (7-17); Carbon Dioxide 21 mmol/L (22-30); Chloride 103 mmol/L (98-107); Estimated CRCL calculation 81 ml/min; Estimated Glomerular Filt Rate > 60; Glucose 78 mg/dL (65-110); Potassium 3.5 mmol/L (3.4-5.0); Sodium 139 mmol/L (137-145)
[2024-08-18 15:59] LABS: Troponin I < 0.012 ng/mL (0.000-0.034)
[2024-08-18 16:03] LABS: Influenza A QL RT-PCR Negative (Negative); Influenza B QL RT-PCR Negative (Negative); RSV RNA, RT-PCR Negative (Negative); SARS-CoV-2 RNA PCR Negative (Negative)
--- NOTE | 2024-08-18 17:51 | ED.RECABL ---
HPI - Recheck/Abnormal Lab/Rx General Chief Complaint: Recheck/Abnormal Lab/Rx Stated Complaint: elevated bp, neck pain Time Seen by Provider: 08/18/24 16:14 History of Present Illness HPI narrative: 49-year-old female presenting with concerns for high blood pressure. States that she was feeling generally unwell earlier today and keeps having episodes of facial flushing. States that she has had facial flushing in the past and she has attributed it to menopause. Today she checked her blood pressure multiple times are and it got up to 140/100 which is the highest she has seen so she came in for evaluation. States that she had a headache earlier, no vision changes or numbness or weakness. No chest pain, shortness of breath, leg swelling. Does report intermittent palpitations which are chronic. No nausea or vomiting. Called her PCP who advised that she come in to get checked out. No Other complaints. Related Data Home Medications Medication Instructions Recorded Confirmed escitalopram oxalate 10 mg tablet 10 mg PO DAILY 08/31/20 05/17/22 (Lexapro) loratadine 10 mg tablet (Allergy 10 mg PO DAILY 08/31/20 05/17/22 Relief (loratadine)) dextroamphetamine-amphetamine ER 30 mg PO QAM 01/31/22 05/17/22 30 mg 24hr capsule,extend release (Adderall XR) esterified estrogens 2.5 mg tablet 2.5 mg PO DAILY 01/31/22 05/17/22 levothyroxine 150 mcg capsule 165 mcg PO DAILY 01/31/22 05/17/22 progesterone micronized 200 mg 500 mg PO QHS 01/31/22 05/17/22 capsule testosterone 1.62 % (40.5 mg/2.5 1 packet transdermal DAILY 01/31/22 05/17/22 gram) transdermal gel packet Allergies Allergy/AdvReac Type Severity Reaction Status Date / Time codeine Allergy Unknown Itching Verified 08/18/24 14:03 morphine Allergy Unknown Itching Verified 08/18/24 14:03 Opioids - Morphine Analogues Allergy Unknown ITCHING Verified 08/18/24 14:03 sulfanilamide Allergy Unknown Migraine Verified 08/18/24 14:03 sumatriptan Allergy Unknown Itching Verified 08/18/24 14:03 tramadol Allergy Unknown Itching Verified 08/18/24 14:03 [id number] Antimigraine Allergy Unknown Unknown Verified 08/18/24 14:03 Agents Sulfa (Sulfonamide Allergy Rash Verified 08/18/24 14:03 Antibiotics) Review of Systems Review of Systems: All systems reviewed & are unremarkable except as noted in HPI and below PMFSH Past Medical History Medical History Anemia Anxiety GERD (gastroesophageal reflux disease) Hypothyroidism Surgical History Surgical History History of knee surgery History of removal of both ovaries History of tubal ligation Family History Family History Mother Family history of suicide Family history of osteoarthritis Father Hypertension Other Cerebrovascular accident Diabetes mellitus Family history of alcoholism Family history of arthritis Family history of cardiovascular disease Family history of mental disorder Social History Social History Smoking status: Never smoker Alcohol intake: current Alcohol use details: Rare occasions Substance use type: does not use Gender identity (if verbalized by the patient): Female Spiritual care concerns: No Exam Narrative: GENERAL: Well-appearing, well-nourished, and in no acute distress. HEAD: Normocephalic, atraumatic. EYES: PERRLA and EOMI. ENT: Grossly unremarkable NECK: Supple. CHEST: Clear to auscultation. No respiratory distress. HEART: Regular rate and rhythm ABDOMEN: Soft, nontender, nondistended EXTREMITIES: Normal range of motion. No edema. SKIN: Warm, dry, no rash. NEURO: No focal deficits. Alert and oriented x3. PSYCH: Normal mood and affect. Course Vital Signs Vital signs: Vital Signs Temperature 97.7 F 1
--- NOTE | 2024-08-18 18:23 | ECG_ITS ---
Test Date: 2024-08-18 18:30:00 Measurements Intervals [place] Rate: 75 P: 22 [place]: 129 QRS: 27 QRSD: 84 T: 48 QT: 357 QTc: 399 Interpretive Statements SINUS RHYTHM NORMAL ELECTROCARDIOGRAM Compared to ECG 08/18/2024 15:27:41 No significant changes Electronically Signed On 08-19-2024 07:18:45 CDT by Shimon Workman M.D.
--- NOTE | 2024-08-18 18:25 | PC.NURSE ---
RN received orders for 3 hour trop & EKG
[2024-08-18 19:17] LABS: Troponin I < 0.012 ng/mL (0.000-0.034)
== END 2024-08-18 19:44 | disposition home or self-care (01) ==
PROVIDERS: Emergency Medicine; Emergency Provider Emergency Medicine; PCP Physician Assistant
DX: R23.2 Flushing (principal); R00.2 Palpitations; Z20.822 Contact with and (suspected) exposure to COVID-19; D64.9 Anemia, unspecified; F41.9 Anxiety disorder, unspecified; K21.9 Gastro-esophageal reflux disease without esophagitis; E03.9 Hypothyroidism, unspecified
CPT/HCPCS: 36415; 80053; 84484; 85025; 87637; 93005; 99284